=== PATIENT | female | born 1960 | race Caucasian/White ===

== ENCOUNTER 2023-10-22 06:17 | Day surgery (SDC) | payer OTHER ==
[~2023-10-22] VITALS: Ht 162.6 cm; Wt 102.1 kg
[2023-10-22] MEDS ORDERED: fentaNYL citrate 0.05 MG/ML VIAL ONE (07:22)
[2023-10-22] MEDS ORDERED: MIDAZOLAM 5 MG/5 ML VIAL ONE (07:22)
[2023-10-22] MEDS: MIDAZOLAM 5 MG/5 ML VIAL IV ONE (07:36)
[2023-10-22] MEDS: fentaNYL citrate 0.05 MG/ML VIAL IVP ONE (07:37)
[2023-10-22] MEDS: LIDOCAINE 2% 100 MG/5 ML UJET TP ONE (08:03)
[2023-10-22] MEDS ORDERED: MIDAZOLAM 5 MG/5 ML VIAL IV SCH (09:00)
[2023-10-22] MEDS ORDERED: fentaNYL citrate 0.05 MG/ML VIAL IVP SCH (09:00)
== END 2023-10-22 09:47 | disposition home or self-care (01) ==
LOC: MDS 06:17 → MMU 06:23 → MDS 09:47
PROVIDERS: ATTEND Internal Medicine Gastroenterology
DX: R19.7 Diarrhea, unspecified (principal); K57.30 Diverticulosis of large intestine without perforation or abscess without bleeding; K31.6 Fistula of stomach and duodenum; R10.13 Epigastric pain; F17.210 Nicotine dependence, cigarettes, uncomplicated; I10 Essential (primary) hypertension; E11.9 Type 2 diabetes mellitus without complications; M19.90 Unspecified osteoarthritis, unspecified site; Z80.0 Family history of malignant neoplasm of digestive organs; Z80.1 Family history of malignant neoplasm of trachea, bronchus and lung; Z98.890 Other specified postprocedural states; Z98.84 Bariatric surgery status
CPT/HCPCS: 43235; 45378; 82948; J2250; J3010